=== PATIENT | male | born 1960 ===

== ENCOUNTER 2021-02-12 07:06 | Emergency (ER) | payer SELFPAY ==
[~2021-02-12] VITALS: Ht 162 cm; Wt 70.0 kg
[2021-02-12 07:27] VITALS: BP 144/96
[2021-02-12 07:38] LABS: BILIRUBIN,URINE NEGATIVE (NEGATIVE); CLARITY,URINE CLEAR; COLOR,URINE YELLOW; GLUCOSE, URINE (UA) NEGATIVE (NEGATIVE); KETONES,URINE NEGATIVE (NEGATIVE); LEUKOCYTE ESTERASE ,URINE TRACE (NEGATIVE); NITRITE,URINE NEGATIVE (NEGATIVE); PROTEIN,URINE NEGATIVE (NEGATIVE)
[2021-02-12 07:44] LABS: BACTERIA,URINE NEGATIVE /HPF; SQUAMOUS EPITHELIAL CELL,UR RARE /HPF
[2021-02-12 07:45] LABS: RBC,URINE 0-2 /HPF
--- NOTE | 2021-02-12 08:01 | ED GU-Female ---
General Chief Complaint: - Reproductive Stated Complaint: NOT URINATING Nursing Triage Note: Patient has presented to ER with cc of trouble urinating for the past 2 days. He reports that he is on flow max but he has only been taking his flomax every other day to stretch out his prescription to last until he gets home. Patient reports that he has had trouble in the past with voiding and he had to have a miller catheter for several days. Patient reports that this morning he is having trouble passing urine and only able to get out a small amount of urine at a time. Source: patient Exam Limitations: no limitations History of Present Illness Date Seen by Provider: Feb 12, 2021 Time Seen by Provider: 07:30 Initial Comments Patient is a 61-year-old male with history of BPH presents with urinary frequency. Patient is currently taking Flomax every other day due to side effects of muscle aches and pains. States he has not had Flomax in the past 24 hours and has had urinary frequency with diminished urinary stream. He denies abdominal pain bladder pain, flank pain. No dysuria, urgency or frequency. No fever chills, nausea vomiting or sweats. He has previously required a Miller catheter which she is trying to avoid. [place] have access to a local PCP. No other symptoms or complaints. Timing/Duration: this morning Severity/Quality: other Location: other Radiation: other Activities at Onset: other Modifying Factors: Improves With Other Allergies and Home Medications Patient Home Medication List Home Medication List Reviewed: Yes Review of Systems Review of Systems Constitutional: see HPI EENTM: see HPI Respiratory: see HPI Cardiovascular: see HPI Gastrointestinal: see HPI Genitourinary: see HPI Musculoskeletal: no symptoms reported Psychiatric/Neurological: See HPI Endocrine: See HPI Hematologic/Lymphatic: See HPI All Other Systemes Reviewed Negative Unless Noted: Yes Past Pkhpiai-Xrouqv-Bbuxev Hx Patient Social History Tobacco Use?: Yes Smoking Status: Never a Smoker Use of E-Cig and/or Vaping dev: No Substance use?: No Alcohol Use?: No Pt feels they are or have been: No Physical Exam Vital Signs Vital Signs - First Documented 02/12/21 02/12/21 07:27 07:49 Temp 36.5 Pulse 82 Resp 18 B/P (MAP) 144/96 (112) Pulse Ox 98 Capillary Refill : Height, Weight, BMI Height: '" Weight: lbs. oz. kg; 26.00 BMI Method: General Appearance: no apparent distress HEENT: PERRL/EOMI, normal ENT inspection Cardiovascular: regular rate, rhythm Respiratory: lungs clear Gastrointestinal: non tender, soft Back: no CVA tenderness Neurologic/Psychiatric: alert, oriented x 3 Skin: normal color Focused Exam Sepsis Stage: Ruled Out Progress/Results/Core Measures Suspected Sepsis SIRS Temperature: Pulse: 82 Respiratory Rate: 18 Blood Pressure 144 /96 Mean: 112 Results/Orders Lab Results Laboratory Tests Test 02/12/21 07:10 Range/Units Urine Color YELLOW Urine Clarity CLEAR Urine pH 7.0 5-9 Urine Specific [place] 1.020 1.016-1.022 Urine Protein NEGATIVE NEGATIVE Urine Glucose (UA) NEGATIVE NEGATIVE Urine Ketones NEGATIVE NEGATIVE Urine Nitrite NEGATIVE NEGATIVE Urine Bilirubin NEGATIVE NEGATIVE Urine Urobilinogen 0.2 < = 1.0 MG/DL Urine Leukocyte Esterase TRACE H NEGATIVE Urine RBC (Auto) TRACE-I H NEGATIVE Urine RBC 0-2 /HPF Urine WBC 2-5 /HPF Urine Squamous Epithelial Cells RARE /HPF Urine Crystals NONE /LPF Urine Bacteria NEGATIVE /HPF Urine Casts NONE /LPF Urine Mucus MODERATE H /LPF Urine Culture Indicated NO My Orders Orders - CLAUS IGNACIO DO Ua Culture If Indicated (02/12/21 07:32) Vital Signs/I&O 02/12/21 02/12/21 07:27 07:49 Temp 36.5 Pulse 82 Resp 18 B/P (MAP) 144/96 (112) Pulse Ox 98 Capillary Refill : Blood Pressure Mean: 112 Departure Communication (Admissions) Benign physical exam with stable vital signs. Patient able to produce a small quantity of urine. Bladder scan reveals less than 276 cc of urine. Recommendations are to discontinue Flomax and attempt alternative alpha-na and follow up with local PCP for further management. Return precautions reviewed. Patient verbalizes understanding agreement discharge instructions prior to departure. Impression Primary Impression: Urinary retention Disposition: 01 HOME, SELF-CARE Condition: Stable Departure-Patient Inst. Decision time for Depature: 07:59 Referrals: NO,LOCAL PHYSICIAN (PCP/Family) Primary Care Physician Patient Instructions: Urinary Retention Add. Discharge Instructions: Please take newly prescribed medications as directed and discontinue Flomax. Follow-up with local primary care provider for reevaluation and further management. Return to the ED if new or worsening symptoms. All discharge instructions reviewed with patient and/or family. Voiced understanding. Scripts Doxazosin Mesylate (Doxazosin Mesylate) 2 Mg Tablet 2 MG PO HS, #30 TAB Prov: CLAUS IGNACIO DO 02/12/21 CLAUS IGNACIO DO Feb 12, 2021 08:01
[2021-02-12] MEDS ORDERED: DOXA2TAB2 PO (08:02)
== END 2021-02-12 08:17 | disposition home or self-care (01) ==
LOC: EDBD → ER FS 07:08
DX: N40.1 Benign prostatic hyperplasia with lower urinary tract symptoms (principal); R33.8 Other retention of urine; T44.6X6A Underdosing of alpha-adrenoreceptor antagonists, initial encounter; Z91.128 Patient's intentional underdosing of medication regimen for other reason; Z79.899 Other long term (current) drug therapy
CPT/HCPCS: 81000; 99283

== ENCOUNTER 2021-02-12 10:23 | Emergency (ER) | payer SELFPAY ==
[~2021-02-12] VITALS: Ht 162 cm; Wt 75.0 kg
[~2021-02-12 10:23] MED LIST: DOXA2TAB2 PO
--- NOTE | 2021-02-12 10:32 | ED General ---
General Stated Complaint: URINARY PAIN Source of Information: Patient History of Present Illness Date Seen by Provider: Feb 12, 2021 Time Seen by Provider: 10:30 Initial Comments Patient is a 61-year-old male evaluated in this emergency department 2 hours ago for acute urinary retention. At that time the patient did not have any acute complaints of suprapubic discomfort. He was prescribed an alpha- na and instructed to increase his medication frequency to twice daily. He has done so but now complains of suprapubic pain with inability to urinate. No other symptoms or complaints. Timing/Duration: 1 Hour Severity: Mild Modifying Factors: improves with Other Associated Systoms: Other Allergies and Home Medications Patient Home Medication List Home Medication List Reviewed: Yes Doxazosin Mesylate (Doxazosin Mesylate) 2 Mg Tablet, 2 MG PO HS Prescribed by: CLAUS IGNACIO on 02/12/21 0802 Review of Systems Review of Systems Constitutional: see HPI EENTM: see HPI Respiratory: no symptoms reported, see HPI Cardiovascular: no symptoms reported Gastrointestinal: no symptoms reported Genitourinary: no symptoms reported Musculoskeletal: no symptoms reported Skin: no symptoms reported Psychiatric/Neurological: No Symptoms Reported Hematologic/Lymphatic: No Symptoms Reported Immunological/Allergic: no symptoms reported All Other Systems Reviewed Negative Unless Noted: Yes Physical Exam Vital Signs Capillary Refill : Height, Weight, BMI Height: '" Weight: lbs. oz. kg; 26.00 BMI Method: General Appearance: No Apparent Distress, Anxious Eyes: Bilateral Eye Normal Inspection, Bilateral Eye PERRL, Bilateral Eye EOMI HEENT: PERRL/EOMI Cardiovascular: Regular Rate, Rhythm Gastrointestinal: Non Tender, Soft Neurologic/Psychiatric: Alert, Oriented x3 Skin: Normal Color Focused Exam Sepsis Stage: Ruled Out Progress/Results/Core Measures Suspected Sepsis SIRS Temperature: Pulse: Respiratory Rate: Blood Pressure / Mean: Results/Orders My Orders Orders - CLAUS IGNACIO DO Catheter(Urinary) Insert & Ass ,15 (02/12/21 10:32) Vital Signs/I&O Capillary Refill : Departure Communication (Admissions) Chance catheter placed with greater than 400 mL of urine output. We will continue alpha-na with referral to urologist for catheter removal and management of BPH. Return precautions reviewed. Patient verbalized understanding and agreement discharge instructions prior to departure. Impression Primary Impression: Urinary retention Disposition: 01 HOME, SELF-CARE Condition: Stable Departure-Patient Inst. Decision time for Depature: 10:44 Referrals: SELF,ATA LEONARD,ADRIANA Vazquez MD Patient Instructions: Urinary Obstruction (DC) Add. Discharge Instructions: Please follow-up with PCP and/or urologist for further management of urinary re tention and removal of Chance catheter. Continue to take doxazosin twice daily. Return to the ED if new or worsening symptoms. CLAUS IGNACIO DO Feb 12, 2021 10:32
[2021-02-12 10:52] VITALS: BP 128/95
== END 2021-02-12 10:53 | disposition home or self-care (01) ==
LOC: EDUNIT# 10:23 → ER FS 10:25 → EDBD 10:25 → ER FS 10:53
DX: R33.9 Retention of urine, unspecified (principal)
CPT/HCPCS: 51702

== ENCOUNTER → 2021-02-14 | Outpatient (CLI) | payer SELFPAY | LOC: LABNPT 15:08 | PROVIDERS: ATTEND Registered Nurse Emergency | DX: N39.0 Urinary tract infection, site not specified (principal) | CPT/HCPCS: 87088 ==